=== PATIENT | female | born 1985 | race Caucasian/White ===

== ENCOUNTER → 2018-07-20 | Outpatient (CLI) | payer OTHER ==
[2017-09-17 08:52] VITALS: BP 120/60
[~2018-07-20] MED LIST: ADVIL LIQUI-GE200 MG PO; GUAIFENESIN AND5 ML PO; NAPROSYN250 M1 PO; ZITHROMAX Z PA250 MG PO
== END ==
LOC: RAD 10:41
DX: M79.641 Pain in right hand (principal)